=== PATIENT | female | born 1925 | race Caucasian/White ===

== ENCOUNTER 2017-03-10 09:36 | Inpatient (IN) | payer OTHER ==
[~2017-03-10] VITALS: Ht 152.4 cm; Wt 59.4 kg
[2017-03-10 09:39] VITALS: Ht 152.4 cm; Wt 59.4 kg
[2017-03-10] MEDS ORDERED: ALBUTEROL 0.083% (NEB) 2.5 MG/3 ML AMP INH STA (10:25)
[2017-03-10] MEDS ORDERED: METHYLPREDNISOLONE 125 MG INJ IV STA (10:25)
[2017-03-10] MEDS ORDERED: IPRATROPIUM (NEB) 0.5 MG/2.5 ML AMP INH STA (10:25)
[2017-03-10] MEDS ORDERED: SOD CHLORIDE 0.9% 1,000 ML IV STA (10:25)
--- NOTE | 2017-03-10 11:47 | RADRPT ---
PROCEDURE: XR Chest. CLINICAL INDICATION: Shortness of breath TECHNIQUE: Single frontal view of the chest was obtained COMPARISON: None FINDINGS: No pleural effusion or pneumothorax. Bilateral, diffuse reticular opacities, which may reflect chronic interstitial changes/senescent fib rosis. Enlarged cardiac silhouette. Calcified aortic arch suggestive of chronic systemic hypertension. Mild interstitial pulmonary edema. No acute osseous abnormality. Degenerative changes of the thoracic spine. IMPRESSION: Cardiomegaly with mild interstitial pulmonary edema. RPTAT: EE Physician Lisa Date Time Electronically viewed and signed by Tamika Aguero Physician on 03/10/2017 11:47 GC/
[2017-03-10] MEDS ORDERED: IPRATROPIUM (NEB) 0.5 MG/2.5 ML AMP NEB STA (12:40)
[2017-03-10] MEDS ORDERED: ALBUTEROL 0.083% (NEB) 2.5 MG/3 ML AMP NEB STA (12:40)
--- NOTE | 2017-03-10 12:47 | ERD ---
ER Documentation Chief Complaint Chief Complaint Complains of cough and vomiting x 1 week HPI This is an 89-year-old previously healthy male with a history of reflux who only takes omeprazole and presents to the emergency department today complaining of a productive cough and difficulty breathing for the past week. The patient has not had any recent travel, prolonged immobilization and no recent hospitalizations. She has not been taking any antibiotics. She has had no fevers or shaking or chills. She denies any swelling of her lower extremities. Her symptoms progressively worsened and last night she experienced paroxysmal nocturnal dyspnea. Her daughter and daughter brought her into the emergency department as they were unable to get into their primary care physician's office. She has never had any similar symptoms in the past ROS All systems reviewed and are negative except as per history of present illness. Medications Home Meds No Active Prescriptions or Reported Meds Allergies Allergies: Coded Allergies: No Known Allergy (Unverified , 03/10/17) PMhx/Soc Medical and Surgical Hx: pt denies Medical Hx, pt denies Surgical Hx History of Surgery: Yes (gall stones) Hx Neurological Disorder: No Hx Respiratory Disorders: No Hx Cardiac Disorders: No Hx Psychiatric Problems: No Hx Miscellaneous Medical Probl: No Hx Alcohol Use: No Hx Substance Use: No Hx Tobacco Use: No Smoking Status: Never smoker Physical Exam Vitals Vital Signs Date Time Temp Pulse Resp B/P Pulse Ox O2 Delivery O2 Flow Rate FiO2 03/10/17 12:16 76 17 110/86 97 Room Air 03/10/17 11:04 70 18 98 21 03/10/17 09:39 98.9 77 20 120/60 97 Physical Exam Constitutional:Well-developed. Well-nourished. Patient in severe respiratory distress HEENT:Normocephalic. Atraumatic.Pupils were equal round reactive to light. Moist mucous membranes.No tonsillar exudates. Neck: No nuchal rigidity. No lymphadenopathy. No posterior cervical spine tenderness or step-offs. Respiratory: Not using accessory muscles of respiration. Rhonchi heard bilaterally. Patient unable to speak more than 2 words at a time before becoming short of breath Cardiovascular: Regular rate regular rhythm.No murmurs. No rubs were appreciated.S1, S2 normal. Distal pulses are palpable 2+ bilaterally. GI: Abdomen was soft. Nontender. Non Distended. No pulsatile abdominal masses or bruits. No rebound. No guarding. Bowel sounds were present and normal. Muscle skeletal: Full range of motion of both the upper and lower extremities bilaterally.Normal muscle tone.No assymetrical calf tenderness or swelling. Skin: No petechia, no purpura. No lesions on the palms or the soles of the feet. No maculopapular rash. NEURO: Patient was alert, awake, orientated x3.No facial droop. Gait observed and normal with no ataxia.Speech had regular rate and rhythm. No focal neurological deficits. Result Diagram: 03/10/17 1156 03/10/17 1103 Results 24 hrs Laboratory Tests Test 03/10/17 11:03 03/10/17 11:10 03/10/17 11:56 Sodium Level 143mmol/L Potassium Level 3.8mmol/L Chloride Level 102mmol/L Carbon Dioxide Level 28mmol/L Anion Gap 17 Blood Urea Nitrogen 13mg/dl Creatinine 0.82mg/dl Glucose Level 96mg/dl Calcium Level 8.8mg/dl Total Bilirubin 0.5mg/dl Direct Bilirubin 0.00mg/dl Indirect Bilirubin 0.5mg/dl Aspartate Amino Transf (AST/SGOT) 26IU/L Alanine Aminotransferase (ALT/SGPT) 27IU/L Alkaline Phosphatase 113IU/L Creatine Kinase 80IU/L Creatine Kinase Index 1.9 Creatinine Kinase MB (Mass) 1.51ng/ml Troponin I < 0.012ng/ml B-Type Natriuretic Peptide 356PG/ML Total Protein 8.2g/dl Albumin 4.3g/dl Globulin 3.90g/dl Albumin/Globulin Ratio 1.10 Urine Color STRAW Urine Clarity CLEAR Urine pH 7.0 [address]rine Specific [place] 1.003 Urine Ketones NEGATIVEmg/dL Urine Nitrite NEGATIVEmg/dL Urine Bilirubin NEGATIVEmg/dL Urine Urobilinogen NEGATIVEmg/dL Urine Leukocyte Esterase TRACELeu/ul Urine Microscopic RBC 3/HPF Urine Microscopic WBC 1/HPF Urine Hemoglobin 1+mg/dL Urine Glucose NEGATIVEmg/dL Urine Total Protein NEGATIVEmg/dl White Blood Count 9.010^3/ul Red Blood Count 4.5710^6/ul Hemoglobin 13.6g/dl Hematocrit 41.0% Mean Corpuscular Volume 89.7fl Mean Corpuscular Hemoglobin 29.8pg Mean Corpuscular Hemoglobin Concent 33.2g/dl Red Cell Distribution Width 12.9% Platelet Count 90263^3/UL Mean Platelet Volume 10.0fl Neutrophils % 49.6% Lymphocytes % 40.7% Monocytes % 8.1% Eosinophils % 1.0% Basophils % 0.2% Nucleated Red Blood Cells % 0.0/100WBC Neutrophils # 4.510^3/ul Lymphocytes # 3.710^3/ul Monocytes # 0.710^3/ul Eosinophils # 0.110^3/ul Basophils # 0.010^3/ul Nucleated Red Blood Cells # 0.010^3/ul Current Medications Medications (Trade) Dose Ordered Sig/Josemanuel Route PRN Reason Start Time Stop Time Status Last Admin Dose Admin Sodium Chloride (NS) 1,000 ml @ 1,000 mls/hr Q1H STAT IV 03/10/17 10:25 03/10/17 11:24 DC 03/10/17 11:09 Albuterol (Proventil 0.083% (Neb)) 5 mg ONCE STAT INH 03/10/17 10:25 03/10/17 10:27 DC 03/10/17 11:03 Ipratropium [place] (Atrovent 0.02% (Neb)) 0.5 mg ONCE STAT INH 03/10/17 10:25 03/10/17 10:27 DC 03/10/17 11:03 Methylprednisolone Sodium Succinate (Solu-Medrol) 125 mg ONCE STAT IV 03/10/17 10:25 03/10/17 10:27 DC 03/10/17 11:09 Furosemide (Lasix) 40 mg ONCE ONCE IV 03/10/17 13:00 03/10/17 13:01 Albuterol (Proventil 0.083% (Neb)) 5 mg ONCE STAT NEB 03/10/17 12:40 03/10/17 12:41 UNV Ipratropium [place] (Atrovent 0.02% (Neb)) 0.5 mg ONCE STAT NEB 03/10/17 12:40 03/10/17 12:41 UNV Procedures/MDM The patient presented to the emergency department with dyspnea. My differential diagnosis included but was not limited to upper airway obstruction, CHF, pulmonary embolism, cardiac ischemia, pneumonia, pneumothorax, anemia, drug overdose, pulmonary edema, COPD or asthma. Oximetry and IV access was established by nursing staff. Given that the patient was in severe respiratory distress she made it was placed on nebulizer treatments of albuterol Atrovent and was given 125 mg of Solu-Medrol as I could not rule out an acute bronchitis. Blood cultures were obtained but there is no evidence of an infectious process at this time. The chest radiograph reviewed by myself and the radiologist indicated that there was mild pulmonary vascular congestion which could be indicative of new onset congestive heart failure. However the patient's BNP was normal. 12 Lead EKG tracing ordered and reviewed by myself showed: Normal sinus rhythm of 75 bpm and no arrhythmia. NV interval normal. QRS duration normal. No ST segment elevation No ST segment depression. No changes consistent with acute ischemia. Observation Note: Time: 4 hours Family Hx: No Hypertension Evaluation: Multiple exams showed minimal improvement of the patient's symptoms. She was given IV Lasix. Given the patient's age and severity of her symptoms I did feel she required admission for continuous nebulizer treatments. She will be admitted to the hospitalist go to the telemetry service for his condition. Departure Diagnosis: Primary Impression: Acute bronchitis Bronchitis organism: unspecified organism Qualified Code: J20.9 - Acute bronchitis, unspecified organism Additional Impression: Pulmonary vascular congestion Condition: Serious SUNSHINEYESY PARKER Mar 10, 2017 12:47
[2017-03-10] MEDS ORDERED: ACETAMINOPHEN 325 MG TAB PO PRN (13:00)
[2017-03-10] MEDS ORDERED: FUROSEMIDE 40 MG INJ IV ONE (13:00)
[2017-03-10] MEDS ORDERED: ONDANSETRON 4 MG INJ IV PRN (13:00)
--- NOTE | 2017-03-10 14:28 | HP ---
Date/Time of Note Date/Time of Note DATE: 03/10/17 TIME: 14:24 Assessment/Plan VTE Prophylaxis VTE Prophylaxis Intervention: LMWH Assessment/Plan Chief Complaint/Hosp Course 89 yo female without significant PMH who presents with 2 weeks of cough and dyspnea. Found to have interstitial pattern on CXR and wheezing - presentation is suggestive of bronchitis, though no clear phelgm or fever etc to suggest infection - CXR pattern suggestive of perhaps and ILD vs CHF though euvolemic on clincial exam Plan: - CT chest to evaluate lung parenchyma and r/o PE - TTE - Continue nebs, bronchodilators and systemic steroids - No need for supplemetnal O2 - Can likely be discharged tomorrow Problems: HPI/ROS Admit Date/Time Admit Date/Time Hx of Present Illness 89 yo female without PMH presenting with SOB and cough x 2 weeks In usoh of generally good heatlh for her age until a couple weeks ago. Cough has been progressively worsening, not much phlegm, nonproductive. Associated w pain in her chest from soreness now. Also describes SOB w wheezing. No fever no chills no night sweats. No rhinorreha or any systemic symptoms. Denies angina, no edema. Does seem to get worse at night her symptoms, mild orthopena. In ED found to be very wheezy on presentation, given solumddrol and nebs, feelign much bettter and per Dr Morris in ED resrpiatory status is much improved. PMH/Family/Social Past Medical History Medical History: no pertinent history Past Surgical History Past Surgical Hx: no surgical history Family History Significant Family History: no pertinent family hx Social History Alcohol Use: none Smoking Status: Never smoker Drug Use: none Exam/Review of Systems Vital Signs Vitals Vital Signs Date Time Temp Pulse Resp B/P Pulse Ox O2 Delivery O2 Flow Rate FiO2 03/10/17 13:37 96 18 98 Nasal Cannula 3.0 03/10/17 12:16 110/86 03/10/17 11:04 21 03/10/17 09:39 98.9 Exam Constitutional: alert, oriented, well developed Psych: nl mood/affect, no complaints Head: atraumatic, normocephalic Eyes: EOMI, PERRL, nl conjunctiva, nl lids, nl sclera ENMT: nl external ears & nose, nl lips & teeth, nl nasal mucosa & septum Neck: non-tender, supple Respiratory: clear to auscultation, normal air movement Cardiovascular: nl pulses, regular rate and rhythm Gastrointestinal: nl liver, spleen, non-tender, soft Musculoskeletal: nl extremities to inspection Extremities: normal pulses Neurological: ASSOCIATE DIRECTOR OF NURSING II-XII intact, nl mental status, nl speech, nl strength Skin: nl turgor, No rash or lesions Lymph: nl lymph nodes Labs Result Diagram: 03/10/17 1156 03/10/17 1103 LISSA XIAO MD Mar 10, 2017 14:28
[2017-03-10] MEDS ORDERED: NACL 0.9% 3 ML SYG IV SCH (14:30)
[2017-03-10] MEDS: ALBUTEROL/IPRATROPIUM (NEB) 3 ML AMP HHN SCH ×2 (14:30→19:30)
[2017-03-10] MEDS ORDERED: SOD CHLORIDE 0.9% 100 ML ONE (14:48)
[2017-03-10] MEDS ORDERED: IOHEXOL 300MG/ML 150 ML BTL ONE (14:48)
[2017-03-10] MEDS ORDERED: IOHEXOL 100 ML ONE (14:49)
[2017-03-10 15:00] VITALS: BP 98/72; PULSE 111; RESP 18
[2017-03-10 15:02] VITALS: PULSE 112
[2017-03-10 16:00] VITALS: PULSE 110
--- NOTE | 2017-03-10 19:32 | RADRPT ---
PROCEDURE: CT Chest with IV contrast. CLINICAL INDICATION: Shortness of breath TECHNIQUE: CT scan of the chest was performed on a multidetector scanner. The patient was scanned following the uncomplicated intravenous administration of 100 cc of Omnipaque 350 contrast. 3D, co kurtis and sagittal reformatted images were obtained from the axial source images. Images were review ed on a high-resolution PACS workstation. The total exam CTDlvol = 67 mGy and DLP = 353 mGy-cm. One of the following 3 dose reduction techniques were used: Automated exposure control; adjustment of th e mA and/or kV according to patient size; or use of iterative reconstruction technique. COMPARISON: Chest x-ray 03/10/2017 FINDINGS: Study limited by motion. No filling defects are identified within the pulmonary arteries to suggest pulmonary artery thrombosis. Pulmonary vessels appear engorged. Thoracic aorta is normal caliber wi thout aneurysm or dissection. There are atherosclerotic calcifications of the aorta and coronary ar teries. There is no mediastinal or hilar lymphadenopathy or mass. Heart is moderately enlarged.. N o pericardial fluid or thickening. There is a 6.7 cm cyst in the left lobe of thyroid gland. There is mild dependent atelectasis. There is mild diffuse interstitial prominence. There is no dens e focal lobar infiltrate. There is no pleural effusion. There is no pneumothorax. There is mild loss of height of the T5 vertebral body with predominately posterior central superior and inferior endplate depression with slight overall loss of height of the vertebral body. No defini te acute fracture line is identified. Bones are osteopenic. There are no definite acute fractures.. Imaging obtained through the upper abdomen demonstrates prominent 17 cm liver with diffuse hypodensi ty/fatty infiltration.. IMPRESSION: 1. No evidence for pulmonary embolus. 2. Cardiomegaly. Prominent pulmonary vessels. Diffuse interstitial prominence. Appearance is sugge stive of pulmonary vascular congestion. 3. Atherosclerotic calcifications of the aorta and coronary arteries. 4. Mild dependent atelectasis. 5. Likely chronic mild left-sided T5 vertebral body with prominent Schmorl's nodes the posterior ce ntral superior and inferior endplates. 6. Prominent fatty liver. RPTAT: HMVK .Isaac Oshea MD, MD Date Time Electronically viewed and signed by .Isaac Oshea MD, MD on 03/10/2017 19:31 .K/
[2017-03-10 19:54] VITALS: BP 98/60; RESP 18
[2017-03-10 20:00] VITALS: PULSE 101
[2017-03-10 23:48] VITALS: BP 104/52; RESP 18
[2017-03-11] VITALS (9 sets, daily range): BP systolic 90–108; BP diastolic 50–68; PULSE 87–111; RESP 16–18
[2017-03-11] MEDS: ALBUTEROL/IPRATROPIUM (NEB) 3 ML AMP HHN SCH ×3 (01:53→14:31)
[2017-03-11] MEDS ORDERED: PANTOPRAZOLE (EC) 40 MG TAB PO SCH (06:00)
[2017-03-11] MEDS ORDERED: predniSONE 20 MG TAB PO SCH (09:00)
[2017-03-11] MEDS ORDERED: ENOXAPARIN 30 MG/0.3 ML SYG SC SCH (09:00)
[2017-03-11] MEDS ORDERED: FUROSEMIDE 20 MG INJ IV ONE (10:30)
[2017-03-11] MEDS ORDERED: ALBUTEROL HFA 8 GM INHALER INH STA (13:32)
[2017-03-11] MEDS ORDERED: ALBU90AE INHALATION ×2 (13:38→13:44)
[2017-03-11] MEDS ORDERED: PRED20TA PO ×2 (13:38→13:44)
--- NOTE | 2017-03-11 13:45 | PDOCDIS ---
Discharge Instructions DIAGNOSIS Discharge Diagnosis Bronchitis CONDITION Patient Condition: Good HOME CARE INSTRUCTIONS: Diet Instructions: Regular FOLLOW UP/APPOINTMENTS Follow-up Plan Use your inhaler for shortness of breath Discuss your symptoms with your primary doctor Return to the hospital if you have any concerning symptoms LISSA XIAO MD Mar 11, 2017 13:44
--- NOTE | 2017-03-11 13:46 | DS ---
Date/Time of Note Date/Time of Note DATE: 03/11/17 TIME: 13:45 Discharge Summary Admission/Discharge Info Admit Date/Time Mar 10, 2017 at 14:58 Discharge Date/Time Discharge Diagnosis Bronchitis Patient Condition: Fair Hx of Present Illness 89 yo female without PMH presenting with SOB and cough x 2 weeks In usoh of generally good heatlh for her age until a couple weeks ago. Cough has been progressively worsening, not much phlegm, nonproductive. Associated w pain in her chest from soreness now. Also describes SOB w wheezing. No fever no chills no night sweats. No rhinorreha or any systemic symptoms. Denies angina, no edema. Does seem to get worse at night her symptoms, mild orthopena. In ED found to be very wheezy on presentation, given solumddrol and nebs, feelign much bettter and per Dr Morris in ED resrpiatory status is much improved. Hospital Course 89 yo female without significant PMH who presents with 2 weeks of cough and dyspnea. Found to have interstitial pattern on CXR and wheezing Her wheezing improved immediately with nebulizers and steroids. Chest CT was performed showing a nonspecific interstitial pattern. Her presentation was most consistent with a viral induced bronchospasm/wheezing. She was prescribed albuterol inhaler and prednisone to complete a 5 day course. She will follow up with her primary care doctor if she does not improve to baseline Home Meds Active Scripts Albuterol Sulfate (Proair Respiclick) 90 Mcg Aer.pow.ba, 2 PUFFS INHALATION Q6 Y for SHORTNESS OF BREATH, #1 BOTTLE Prov:LISSA XIAO MD 03/11/17 Prednisone* (Prednisone*) 20 Mg Tab, 40 MG PO DAILY for 3 Days, #3 TAB Prov:LISSA XIAO MD 03/11/17 Follow-up Plan Use your inhaler for shortness of breath Discuss your symptoms with your primary doctor Return to the hospital if you have any concerning symptoms Primary Care Provider Ez Doty Pending Labs Laboratory Tests Test 03/11/17 05:13 White Blood Count 10.710^3/ul (4.8-10.8) Red Blood Count 4.3010^6/ul (4.20-5.40) Hemoglobin 12.5g/dl (12.0-16.0) Hematocrit 38.0% (37.0-47.0) Mean Corpuscular Volume 88.4fl (82.0-101.0) Mean Corpuscular Hemoglobin 29.1pg (29.0-33.0) Mean Corpuscular Hemoglobin Concent 32.9g/dl (32.0-37.0) Red Cell Distribution Width 13.2% (11.5-14.5) Platelet Count 04023^3/UL (140-415) Mean Platelet Volume 10.7fl (7.4-10.4) Neutrophils % 77.9% (39.0-77.0) Lymphocytes % 13.4% (15.0-51.0) Monocytes % 7.7% (0.0-11.0) Eosinophils % 0.0% (0.0-7.0) Basophils % 0.1% (0.0-2.0) Nucleated Red Blood Cells % 0.0/100WBC (0.0-0.0) Neutrophils # 8.410^3/ul (1.6-7.5) Lymphocytes # 1.410^3/ul (0.8-2.9) Monocytes # 0.810^3/ul (0.3-0.9) Eosinophils # 0.010^3/ul (0.0-0.5) Basophils # 0.010^3/ul (0.0-0.1) Nucleated Red Blood Cells # 0.010^3/ul (0.0-0.0) Sodium Level 142mmol/L (135-144) Potassium Level 3.6mmol/L (3.5-5.1) Chloride Level 102mmol/L (97-110) Carbon Dioxide Level 24mmol/L (21-31) Anion Gap 20 (8-16) Blood Urea Nitrogen 21mg/dl (7-20) Creatinine 0.92mg/dl (0.44-1.00) Glucose Level 141mg/dl (70-220) Calcium Level 9.2mg/dl (8.4-10.2) Total Bilirubin 0.3mg/dl (0.2-1.3) Direct Bilirubin 0.00mg/dl (0.00-0.20) Indirect Bilirubin 0.3mg/dl (0-1.1) Aspartate Amino Transf (AST/SGOT) 28IU/L (15-46) Alanine Aminotransferase (ALT/SGPT) 27IU/L (13-69) Alkaline Phosphatase 89IU/L (42-121) Total Protein 7.8g/dl (6.1-8.1) Albumin 4.1g/dl (3.3-4.9) Globulin 3.70g/dl (1.3-3.2) Albumin/Globulin Ratio 1.10 LISSA XIAO MD Mar 11, 2017 13:46
--- NOTE | 2017-03-11 16:24 | RADRPT ---
Echocardiogram Report Patient Name: GERRI BONE Gender: Female Date: 1925 Study Date: 11-Mar-2017 Dye Padder Operator: ROXI Location: 502 Ref. Physician: LISSA XIAO Quality: Good Procedures: Transthoracic echocardiogram with complete 2D, M-Mode, and doppler examination. Indications: Congestive Heart Failure. 2D/M Mode Doppler Measurement Value Normal Ranges Measurement Value Normal Ranges AoR Diam MM 3.0 cm CLARE Vmax 1.3 cm2 LA/Ao MM 1.4 CLARE VTI 1.2 cm2 LA Dimen MM 4.1 cm AV Mean Antoni 1.8 m/sec LVIDd 2D 3.8 3.5 - 5.6 cm AV Mean PG 14.4 mmHg LVIDs 2D 2.6 2.1 - 4.1 cm AV Peak Antoni 2.5 m/sec LVPWd 2D 1.2 0.6 - 1.1 cm AV Peak PG 24.9 mmHg IVSd 2D 1.2 0.6 - 1.1 cm AV VTI 44.7 cm EDV 2D 60.4 cm3 LVOT Mean Antoni 0.9 m/sec ESV 2D 18.4 cm3 LVOT Mean PG 3.2 mmHg EF 2D 60.0 50.0 - 65.0 % LVOT Peak Antoni 1.1 m/sec LVOT Diam 1.9 cm LVOT Peak PG 5.2 mmHg LVOT VTI 23.2 cm MV E Peak Antoni 1.3 m/sec MV A Peak Antoni 1.8 m/sec MV E/A 0.7 MV Decel Time 314 msec MV Decel [place] 4 MV E/A 0.7 TR Peak Antoni 3.4 m/sec TR Peak PG 46.5 mmHg RVSP 50.0 mmHg RA Pressure 3.0 Findings Left Ventricle: Normal left ventricular systolic function. Normal left ventricular cavity size. Mild concentric left ventricular hypertrophy. Ejection fraction is visually estimated at 60 %. Abnormal Diastolic Function. Right Ventricle: Normal right ventricular size. Normal right ventricular systolic function. Left Atrium: There is mild enlargement of left atrium. Right Atrium: The right atrium is normal in size. Mitral Valve: Moderate mitral leaflet calcification. Mild- Moderate mitral annular calcification. Trace mitral regurgitation. Aortic Valve: Mild aortic stenosis. Aortic valve Max velocity 2.58 m/sec. Max PG 26.70 mmHg. Mean PG 16.40 mmHg. Aortic valve area 1.30 cm2. Aortic cusps appear mildly restricted. Trace aortic valve regurgitation by color. Tricuspid Valve: Normal appearance of the tricuspid valve. Estimated peak PA systolic pressure 50 mmHg. There is mild to moderate tricuspid regurgitation. Pericardium: Normal pericardium with no significant pericardial effusion. Aorta: Normal aortic root. IVC: Normal size and normal respiratory collapse consistent with normal right atrial pressure. Conclusions 1.Normal left ventricular systolic function. Normal left ventricular cavity size. Mild concentric left ventricular hypertrophy. Ejection fraction is visually estimated at 60 %. Abnormal Diastolic Function. 2.Normal right ventricular size. Normal right ventricular systolic function. 3.Moderate mitral leaflet calcification. Mild- Moderate mitral annular calcification. Trace mitral regurgitation. 4.Mild aortic stenosis. 5.Estimated peak PA systolic pressure 50 mmHg. There is mild to moderate tricuspid regurgitation. 6.Moderate pulmonary hypertension. 7.Normal pericardium with no significant pericardial effusion. Electronically Signed By: Ye Russell 11-Mar-2017 16:23:37 -0800 Patient Name: GERRI BONE Study Date: 11-Mar-2017 [id number]
--- NOTE | 2017-03-11 16:24 | RADRPT ---
Echocardiogram Report Patient Name: GERRI BONE Gender: Female Date: 1925 Study Date: 11-Mar-2017 Snuff Blender: ROXI Location: 502 Ref. Physician: LISSA XIAO Quality: Good Procedures: Transthoracic echocardiogram with complete 2D, M-Mode, and doppler examination. Indications: Congestive Heart Failure. 2D/M Mode Doppler Measurement Value Normal Ranges Measurement Value Normal Ranges AoR Diam MM 3.0 cm CLARE Vmax 1.3 cm2 LA/Ao MM 1.4 CLARE VTI 1.2 cm2 LA Dimen MM 4.1 cm AV Mean Antoni 1.8 m/sec LVIDd 2D 3.8 3.5 - 5.6 cm AV Mean PG 14.4 mmHg LVIDs 2D 2.6 2.1 - 4.1 cm AV Peak Antoni 2.5 m/sec LVPWd 2D 1.2 0.6 - 1.1 cm AV Peak PG 24.9 mmHg IVSd 2D 1.2 0.6 - 1.1 cm AV VTI 44.7 cm EDV 2D 60.4 cm3 LVOT Mean Antoni 0.9 m/sec ESV 2D 18.4 cm3 LVOT Mean PG 3.2 mmHg EF 2D 60.0 50.0 - 65.0 % LVOT Peak Antoni 1.1 m/sec LVOT Diam 1.9 cm LVOT Peak PG 5.2 mmHg LVOT VTI 23.2 cm MV E Peak Antoni 1.3 m/sec MV A Peak Antoni 1.8 m/sec MV E/A 0.7 MV Decel Time 314 msec MV Decel [place] 4 MV E/A 0.7 TR Peak Antoni 3.4 m/sec TR Peak PG 46.5 mmHg RVSP 50.0 mmHg RA Pressure 3.0 Findings Left Ventricle: Normal left ventricular systolic function. Normal left ventricular cavity size. Mild concentric left ventricular hypertrophy. Ejection fraction is visually estimated at 60 %. Abnormal Diastolic Function. Right Ventricle: Normal right ventricular size. Normal right ventricular systolic function. Left Atrium: There is mild enlargement of left atrium. Right Atrium: The right atrium is normal in size. Mitral Valve: Moderate mitral leaflet calcification. Mild- Moderate mitral annular calcification. Trace mitral regurgitation. Aortic Valve: Mild aortic stenosis. Aortic valve Max velocity 2.58 m/sec. Max PG 26.70 mmHg. Mean PG 16.40 mmHg. Aortic valve area 1.30 cm2. Aortic cusps appear mildly restricted. Trace aortic valve regurgitation by color. Tricuspid Valve: Normal appearance of the tricuspid valve. Estimated peak PA systolic pressure 50 mmHg. There is mild to moderate tricuspid regurgitation. Pericardium: Normal pericardium with no significant pericardial effusion. Aorta: Normal aortic root. IVC: Normal size and normal respiratory collapse consistent with normal right atrial pressure. Conclusions 1.Normal left ventricular systolic function. Normal left ventricular cavity size. Mild concentric left ventricular hypertrophy. Ejection fraction is visually estimated at 60 %. Abnormal Diastolic Function. 2.Normal right ventricular size. Normal right ventricular systolic function. 3.Moderate mitral leaflet calcification. Mild- Moderate mitral annular calcification. Trace mitral regurgitation. 4.Mild aortic stenosis. 5.Estimated peak PA systolic pressure 50 mmHg. There is mild to moderate tricuspid regurgitation. 6.Moderate pulmonary hypertension. 7.Normal pericardium with no significant pericardial effusion. Electronically Signed By: Ye Russell 11-Mar-2017 16:23:37 -0800 Patient Name: GERRI BONE Study Date: 11-Mar-2017 [id number]
--- NOTE | 2017-03-13 14:53 | RADRPT ---
Vent Rate: 88 bpm RR Interval: 0 msec [place] Interval: 150 msec QRS Duration: 80 msec QT Interval: 394 msec QTC Interval: 476 msec P-R-T [place]: 50 - 27 - 47 degrees Normal sinus rhythm ST abnormality, possible digitalis effect Abnormal ECG Electronically Signed By: Raul Tomas [id number]
--- NOTE | 2017-03-13 14:53 | RADRPT ---
Vent Rate: 88 bpm RR Interval: 0 msec [place] Interval: 150 msec QRS Duration: 80 msec QT Interval: 394 msec QTC Interval: 476 msec P-R-T [place]: 50 - 27 - 47 degrees Normal sinus rhythm ST abnormality, possible digitalis effect Abnormal ECG Electronically Signed By: Raul Tomas [id number]
--- NOTE | 2017-03-13 14:53 | RADRPT ---
Vent Rate: 88 bpm RR Interval: 0 msec [place] Interval: 150 msec QRS Duration: 80 msec QT Interval: 394 msec QTC Interval: 476 msec P-R-T [place]: 50 - 27 - 47 degrees Normal sinus rhythm ST abnormality, possible digitalis effect Abnormal ECG Electronically Signed By: Raul Tomas [id number]
== END 2017-03-11 17:50 | disposition home or self-care (01) | DRG 203 ==
LOC: E/R 09:36 → TEL 14:58
PROVIDERS: ADMIT Internal Medicine; ATTEND Internal Medicine
DX: J20.9 Acute bronchitis, unspecified (principal)
CPT/HCPCS: 36415; 71010; 71275; 80053; 81001; 82550; 82553; 83880; 84484; 85025; 87040; 87086; 93005; 93306; 94640; 94664; 96374; 96375; J1940; J1650; J2930; J7030; J7512; Q9967